=== PATIENT | female | born 1995 | race Caucasian/White ===

== ENCOUNTER → 2018-04-06 | Day surgery (SDC) | payer BC ==
[2018-04-04 11:55] VITALS: BMI 32.1
[~2018-04-06] MED LIST: BENZOCAINE SPRAY 1 CAN MUCOUS MEM ONE; MIDAZOLAM 2 MG/2 ML VIAL IVP ONE; SODIUM CHLORIDE 0.9% 500 ML 500 ML IV ONE; fentaNYL (PF) 50 MCG/ML 2 ML AMP IVP ONE; fentaNYL (PF) 50 MCG/ML 2 ML AMP ONE
[2018-04-06 13:03] VITALS: BP 110/71; PULSE 90; RESP 15
--- NOTE | 2018-04-06 13:03 | ECHOT ---
TRANSESOPHAGEAL ECHOCARDIOGRAM DATE OF SERVICE: 04/06/2018 PERFORMING PHYSICIAN: Thom Deras MD, [employer]. PROCEDURE PERFORMED: Transesophageal echocardiogram. INDICATION: This is a pleasant 22-year-old female patient who was experiencing intermittent episodes of left arm numbness as well as intermittent episodes of syncope quite concerning for TIA. Cardiac source of embolization was a concern and a transesophageal echocardiogram for further evaluation and rule out any cardiac source of embolization. COMPLICATION: None. LEVEL OF SEDATION: Moderate with sedation length of 10 minutes. PROCEDURE DESCRIPTION: After obtaining an informed consent, explaining the procedure, benefits, risks, complications and alternatives, the patient was brought to the transesophageal echocardiogram suite. A pulse oximetry and heart rate monitors were attached to the patient prior to the procedure. The patient's throat was sprayed using lidocaine locally. Following that, the patient was turned into left lateral position. A bite guard was placed and the patient was then sedated with the above doses of Versed and fentanyl in divided doses. Following that, the transesophageal echocardiogram probe was advanced through the bite guard into the mid esophagus where 2-D echocardiogram images as well as color Doppler images of various cardiac structures were obtained. We evaluated the interatrial septum using 2-D echocardiogram, color Doppler, and contrast study. The procedure was completed. There were no complications. FINDINGS: The left ventricular dimension and systolic function appeared to be within normal limits. The ejection fraction appeared to be in the range of 55%. The right ventricle is of normal size and function. The left atrium appeared to be within normal limits for dimension. The left atrial appendage appeared to be free from any thrombus. The interatrial septum appeared to be intact without any evidence of shunt by color-flow Doppler or contrast study. The aortic valve is trileaflet valve without stenosis or regurgitation. The mitral valve seems to be normal with mild MR. Normal tricuspid valve and pulmonic valve. CONCLUSION: 1. No evidence of cardiac source of embolization. 2. Normal interatrial septum without any evidence of shunt. 3. Normal left atrial appendage without any evidence of thrombus. 4. Normal cardiac chamber sizes. 5. Normal intracardiac valves. 6. Normal aortic root dimension. 7. No evidence of pericardial effusion. MMODL / IJN: [id number] /
== END ==
LOC: CATHCVL 10:48
PROVIDERS: ATTEND Internal Medicine Interventional Cardiology
DX: R20.0 Anesthesia of skin (principal); R55 Syncope and collapse; R07.89 Other chest pain; R06.02 Shortness of breath; E78.5 Hyperlipidemia, unspecified; Z82.49 Family history of ischemic heart disease and other diseases of the circulatory system
CPT/HCPCS: 93312; 93325; 81025; J2250; J3010